=== PATIENT | female | born 1970 | race African-American/Black ===

== ENCOUNTER 2021-07-19 08:58 | Emergency (ER) | payer BC, OTHER ==
[~2021-07-19] VITALS: Ht 154.9 cm; Wt 81.0 kg
[2021-07-19] MEDS ORDERED: IBUPROFEN 600MG TABLET PO ONE (11:00)
[2021-07-19 12:04] VITALS: BP 136/76
== END 2021-07-19 14:04 | disposition home or self-care (01) ==
LOC: ER 08:58
DX: M25.561 Pain in right knee (principal); H53.8 Other visual disturbances; V43.52XA Car driver injured in collision with other type car in traffic accident, initial encounter; Y93.89 Activity, other specified; Y92.410 Unspecified street and highway as the place of occurrence of the external cause
CPT/HCPCS: 73030; 73562; 99284